=== PATIENT | female | born 2000 | race Caucasian/White ===

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

== ENCOUNTER 2019-10-30 23:18 | Emergency (ER) | payer BC, MEDICAID ==
[2019-10-30 23:25] VITALS: BP 148/73
--- NOTE | 2019-10-31 00:32 | ER Document Report ---
ED Medical Screen (RME) - General Chief Complaint: Chest Pressure Stated Complaint: FLANK PAIN Time Seen by Provider: 10/31/19 00:25 Mode of Arrival: Ambulatory Information source: Patient Notes: HPI; 19-year old female states she is 23 weeks presents to the emergency room complaining of some left rib pain that radiates to her left flank area that started earlier this morning. Takes Tylenol with relief. Denies any nausea, vomiting, no fevers. No urinary symptoms. No vaginal discharge or vaginal bleeding. OB care is up-to-date. PE: Alert and oriented x3. Mild distress noted. Lungs: Clear to auscultation without rales, rhonchi, wheezes. Heart: Regular rate rhythm without murmurs, rubs, gallops. Positive for left CVA tenderness. Unable to do full exam in triage secondary to body habitus and position of patient. I have greeted and performed a rapid initial assessment of this patient. A comprehensive ED assessment and evaluation of the patient, analysis of test results and completion of the medical decision making process will be conducted by additional ED providers. I have specifically instructed the patient or family members with the patient to immediately return to any nursing staff should anything change in the patient's condition or with their chief complaint. TRAVEL OUTSIDE OF THE [place] IN LAST 30 DAYS: No - Related Data Allergies/Adverse Reactions: No Known Allergies Allergy (Verified 09/20/18 15:07) Past Medical History - Social History Chew tobacco use (# tins/day): No Drug Abuse: None Pulmonary Medical History: Reports: Hx Asthma Renal/ Medical History: Denies: Hx Peritoneal Dialysis - Immunizations Immunizations up to date: Yes Physical Exam - Vital signs Vitals: Temp Pulse Resp BP Pulse Ox 97.4 F 99 16 148/73 H 100 10/30/19 23:24 10/30/19 23:24 10/30/19 23:24 10/30/19 23:24 10/30/19 23:24 Course - Vital Signs Vital signs: Temp Pulse Resp BP Pulse Ox 99.0 F 99 16 148/73 H 100 10/31/19 00:24 10/30/19 23:24 10/30/19 23:24 10/30/19 23:24 10/30/19 23:24
--- NOTE | 2019-10-31 01:33 | RADIOLOGY REPORT (SQ) ---
EXAM DESCRIPTION: Retroperitoneal and renal ultrasound CLINICAL HISTORY: 19 years Female; left flank pain TECHNIQUE: Bilateral renal ultrasound was performed. COMPARISON: None. FINDINGS: Visualized portions of IVC and aorta are unremarkable. Right kidney: The kidney measures 11.2 x 5.0 x 4.7 cm. Echogenicity is normal. Blood flow is normal.. No hydronephrosis or shadowing calculi. Left kidney: The kidney measures 11.3 x 5.2 x 5.0 cm. Echogenicity is normal. Blood flow is seen throughout the kidney.. No hydronephrosis or shadowing calculi. Bladder: The bladder is empty. . A gravid uterus is seen in the low pelvis. heart rate is noted at 160 bpm. Position is cephalic. IMPRESSION: 1. Normal-appearing kidneys bilaterally. No hydronephrosis. 2. Intrauterine in cephalic presentation.
[2019-10-31 01:54] LABS: ABSOLUTE BASOPHILS # (AUTO) 0.1 10^3/uL (0.0-0.2); ABSOLUTE EOSINOPHILS # (AUTO) 0.5 10^3/uL (0.0-0.6); ABSOLUTE LYMPHOCYTES (AUTO) 2.7 10^3/uL (0.5-4.7); ABSOLUTE MONOCYTES (AUTO) 1.2 10^3/uL (0.1-1.4); ABSOLUTE NEUT (AUTO) 9.2 10^3/uL (1.7-8.2); BASOPHILS % (AUTO) 0.4 % (0-2); EOSINOPHILS % (AUTO) 3.5 % (0-6); HEMATOCRIT 35.6 % (36.0-47.0); HEMOGLOBIN 12.3 g/dL (12.0-15.5); LYMPHOCYTES % (AUTO) 20.1 % (13-45); MEAN CORPUSCULAR HEMOGLOBIN 31.6 pg (27.0-33.4); MEAN CORPUSCULAR HGB CONC 34.5 g/dL (32.0-36.0); MEAN CORPUSCULAR VOLUME 92 fl (80-97); MONOCYTES % (AUTO) 8.8 % (3-13); PLATELET COUNT 293 10^3/uL (150-450); RED BLOOD COUNT 3.89 10^6/uL (3.72-5.28); RED CELL DISTRIBUTION WIDTH 13.6 % (11.5-14.0); SEGMENTED NEUTROPHILS % (AUTO) 67.2 % (42-78); TOTAL CELLS COUNTED % (AUTO) 100 %; WHITE BLOOD COUNT 13.6 10^3/uL (4.0-10.5)
[2019-10-31 02:01] LABS: APPEARANCE,URINE SLIGHTLY-CLOUDY; BILIRUBIN,URINE NEGATIVE (NEGATIVE); COLOR,URINE YELLOW; GLUCOSE, URINE NEGATIVE (NEGATIVE); KETONES,URINE NEGATIVE (NEGATIVE); LEUKOCYTE ESTERASE,URINE TRACE (NEGATIVE); NITRITE,URINE NEGATIVE (NEGATIVE); PROTEIN,URINE NEGATIVE (NEGATIVE); URINE SPECIFIC GRAVITY 1.017; UROBILINOGEN,URINE NEGATIVE mg/dL (<2.0)
[2019-10-31 02:05] LABS: ALBUMIN 3.9 g/dL (3.5-5.0); ALKALINE PHOSPHATASE 93 U/L (38-126); ANION GAP 9 (5-19); ASPARTATE AMINO TRANSFERASE 14 U/L (14-36); BILIRUBIN,TOTAL 0.3 mg/dL (0.2-1.3); BLOOD UREA NITROGEN 5 mg/dL (7-20); CALCIUM 9.8 mg/dL (8.4-10.2); CARBON DIOXIDE 20 mmol/L (22-30); CHLORIDE 106 mmol/L (98-107); GLUCOSE 93 mg/dL (75-110); POTASSIUM 3.9 mmol/L (3.6-5.0); TOTAL PROTEIN 7.1 g/dL (6.3-8.2)
== END 2019-10-31 07:00 | disposition left against medical advice (07) ==
LOC: ER 23:18
DX: O26.892 Other specified pregnancy related conditions, second trimester (principal); R07.81 Pleurodynia; R10.9 Unspecified abdominal pain; O99.512 Diseases of the respiratory system complicating pregnancy, second trimester; J45.909 Unspecified asthma, uncomplicated; Z3A.23 23 weeks gestation of pregnancy; Z53.20 Procedure and treatment not carried out because of patient's decision for unspecified reasons
CPT/HCPCS: 36415; 76770; 80053; 81001; 85025; 99281

== ENCOUNTER 2019-12-07 10:42 | Outpatient (CLI) | payer BC, MEDICAID ==
[2019-12-07 11:25] LABS: APPEARANCE,URINE SLIGHTLY-CLOUDY; BILIRUBIN,URINE NEGATIVE (NEGATIVE); COLOR,URINE YELLOW; GLUCOSE, URINE NEGATIVE (NEGATIVE); KETONES,URINE TRACE mg/dL (NEGATIVE); LEUKOCYTE ESTERASE,URINE TRACE (NEGATIVE); NITRITE,URINE NEGATIVE (NEGATIVE); PROTEIN,URINE NEGATIVE (NEGATIVE); URINE SPECIFIC GRAVITY 1.009; UROBILINOGEN,URINE NEGATIVE mg/dL (<2.0)
[2019-12-07 11:53] LABS: URINE AMPHETAMINES SCREEN NEGATIVE; URINE BARBITURATES SCREEN NEGATIVE; URINE BENZODIAZEPINES SCREEN NEGATIVE; URINE COCAINE SCREEN NEGATIVE; URINE MARIJUANA (THC) SCREEN NEGATIVE; URINE METHADONE SCREEN NEGATIVE; URINE PHENCYCLIDINE SCREEN NEGATIVE
== END 2019-12-07 12:10 | disposition home or self-care (01) ==
LOC: LC 10:42
PROVIDERS: ATTEND Obstetrics & Gynecology
DX: O23.43 Unspecified infection of urinary tract in pregnancy, third trimester (principal); Z3A.28 28 weeks gestation of pregnancy
CPT/HCPCS: 80307; 81001

== ENCOUNTER 2019-12-18 11:21 | Outpatient (CLI) | payer BC, MEDICAID ==
[2019-12-18] MEDS ORDERED: ACETAMINOPHEN 325 MG TABLET PO ONE (11:43)
[2019-12-18 11:56] LABS: ABSOLUTE EOSINOPHILS # (AUTO) 0.3 10^3/uL (0.0-0.6); ABSOLUTE LYMPHOCYTES (AUTO) 1.8 10^3/uL (0.5-4.7); ABSOLUTE MONOCYTES (AUTO) 0.8 10^3/uL (0.1-1.4); BASOPHILS % (AUTO) 0.2 % (0-2); EOSINOPHILS % (AUTO) 3.3 % (0-6); HEMATOCRIT 36.2 % (36.0-47.0); HEMOGLOBIN 12.5 g/dL (12.0-15.5); MEAN CORPUSCULAR HEMOGLOBIN 31.5 pg (27.0-33.4); MEAN CORPUSCULAR HGB CONC 34.6 g/dL (32.0-36.0); MEAN CORPUSCULAR VOLUME 91 fl (80-97); MONOCYTES % (AUTO) 7.7 % (3-13); PLATELET COUNT 309 10^3/uL (150-450); RED BLOOD COUNT 3.98 10^6/uL (3.72-5.28); SEGMENTED NEUTROPHILS % (AUTO) 70.8 % (42-78); TOTAL CELLS COUNTED % (AUTO) 100 %; WHITE BLOOD COUNT 9.9 10^3/uL (4.0-10.5)
[2019-12-18] MEDS ORDERED: ACETAMINOPHEN 325 MG TABLET ONE (11:57)
[2019-12-18 12:04] LABS: AMORPHOUS SEDIMENT,URINE TRACE /HPF; APPEARANCE,URINE CLOUDY; BILIRUBIN,URINE SMALL (NEGATIVE); COLOR,URINE AMBER; GLUCOSE, URINE NEGATIVE (NEGATIVE); KETONES,URINE TRACE mg/dL (NEGATIVE); LEUKOCYTE ESTERASE,URINE SMALL (NEGATIVE); NITRITE,URINE NEGATIVE (NEGATIVE); PROTEIN,URINE 100 mg/dL (NEGATIVE)
[2019-12-18 12:19] LABS: ALBUMIN 3.9 g/dL (3.5-5.0); ALKALINE PHOSPHATASE 110 U/L (38-126); ANION GAP 11 (5-19); ASPARTATE AMINO TRANSFERASE 17 U/L (14-36); BILIRUBIN,TOTAL 0.3 mg/dL (0.2-1.3); BLOOD UREA NITROGEN 5 mg/dL (7-20); CALCIUM 9.4 mg/dL (8.4-10.2); CARBON DIOXIDE 20 mmol/L (22-30); CHLORIDE 105 mmol/L (98-107); GLUCOSE 116 mg/dL (75-110); URIC ACID 3.4 mg/dL (2.5-6.2)
[2019-12-18 12:23] LABS: URINE AMPHETAMINES SCREEN NEGATIVE; URINE BARBITURATES SCREEN NEGATIVE; URINE BENZODIAZEPINES SCREEN NEGATIVE; URINE COCAINE SCREEN NEGATIVE; URINE METHADONE SCREEN NEGATIVE; URINE PHENCYCLIDINE SCREEN NEGATIVE
[2019-12-18 12:33] LABS: URINE MARIJUANA (THC) SCREEN NEGATIVE
[2019-12-18 12:36] LABS: URINE PROTEIN 5.6 mg/dL (<12)
[2019-12-18 12:43] LABS: URINE CREATININE 363.5 mg/dL (16-327)
== END 2019-12-18 13:01 | disposition home or self-care (01) ==
LOC: LC 11:21
PROVIDERS: ATTEND Obstetrics & Gynecology
DX: O16.3 Unspecified maternal hypertension, third trimester (principal); Z3A.29 29 weeks gestation of pregnancy
CPT/HCPCS: 36415; 80053; 80307; 81001; 82570; 83615; 84156; 84550; 85025; 87086

== ENCOUNTER 2020-01-07 13:07 | Outpatient (CLI) | payer BC, MEDICAID ==
[2020-01-07] MEDS ORDERED: HYDROXYZINE PAMOATE 50 MG CAPSULE ONE (13:33)
[2020-01-07] MEDS ORDERED: HYDROXYZINE PAMOATE 50 MG CAPSULE PO ONE (13:42)
[2020-01-07 14:06] LABS: URINE AMPHETAMINES SCREEN NEGATIVE; URINE BARBITURATES SCREEN NEGATIVE; URINE BENZODIAZEPINES SCREEN NEGATIVE; URINE COCAINE SCREEN NEGATIVE; URINE MARIJUANA (THC) SCREEN NEGATIVE; URINE METHADONE SCREEN NEGATIVE; URINE PHENCYCLIDINE SCREEN NEGATIVE
[2020-01-07 14:15] LABS: APPEARANCE,URINE CLEAR; BILIRUBIN,URINE NEGATIVE (NEGATIVE); COLOR,URINE YELLOW; GLUCOSE, URINE NEGATIVE (NEGATIVE); KETONES,URINE NEGATIVE (NEGATIVE); LEUKOCYTE ESTERASE,URINE SMALL (NEGATIVE); NITRITE,URINE NEGATIVE (NEGATIVE); PROTEIN,URINE NEGATIVE (NEGATIVE); URINE SPECIFIC GRAVITY 1.012; UROBILINOGEN,URINE NEGATIVE mg/dL (<2.0)
[2020-01-07 14:33] LABS: ABSOLUTE EOSINOPHILS # (AUTO) 0.4 10^3/uL (0.0-0.6); ABSOLUTE LYMPHOCYTES (AUTO) 1.8 10^3/uL (0.5-4.7); ABSOLUTE NEUT (AUTO) 6.9 10^3/uL (1.7-8.2); BASOPHILS % (AUTO) 0.4 % (0-2); EOSINOPHILS % (AUTO) 3.9 % (0-6); HEMATOCRIT 33.4 % (36.0-47.0); HEMOGLOBIN 12.1 g/dL (12.0-15.5); LYMPHOCYTES % (AUTO) 17.9 % (13-45); MEAN CORPUSCULAR HEMOGLOBIN 32.9 pg (27.0-33.4); MEAN CORPUSCULAR HGB CONC 36.4 g/dL (32.0-36.0); MEAN CORPUSCULAR VOLUME 91 fl (80-97); MONOCYTES % (AUTO) 9.8 % (3-13); PLATELET COUNT 274 10^3/uL (150-450); RED BLOOD COUNT 3.69 10^6/uL (3.72-5.28); RED CELL DISTRIBUTION WIDTH 12.8 % (11.5-14.0); TOTAL CELLS COUNTED % (AUTO) 100 %; WHITE BLOOD COUNT 10.2 10^3/uL (4.0-10.5)
[2020-01-07 15:00] LABS: ALBUMIN 3.4 g/dL (3.5-5.0); ALKALINE PHOSPHATASE 117 U/L (38-126); ANION GAP 11 (5-19); ASPARTATE AMINO TRANSFERASE 19 U/L (14-36); BILIRUBIN,DIRECT 0.2 mg/dL (0.0-0.4); BILIRUBIN,TOTAL 0.4 mg/dL (0.2-1.3); BLOOD UREA NITROGEN 6 mg/dL (7-20); CALCIUM 9.3 mg/dL (8.4-10.2); CARBON DIOXIDE 16 mmol/L (22-30); CHLORIDE 106 mmol/L (98-107); GLUCOSE 94 mg/dL (75-110); POTASSIUM 4.4 mmol/L (3.6-5.0); TOTAL PROTEIN 6.3 g/dL (6.3-8.2)
== END 2020-01-07 15:15 | disposition home or self-care (01) ==
LOC: LC 13:07
PROVIDERS: ATTEND Obstetrics & Gynecology
DX: O26.893 Other specified pregnancy related conditions, third trimester (principal); Z3A.32 32 weeks gestation of pregnancy
CPT/HCPCS: 36415; 80053; 80307; 81001; 82239; 85025; 87086

== ENCOUNTER 2020-02-05 15:49 | Inpatient (IN) | payer BC, MEDICAID ==
[2020-02-05 16:57] LABS: APPEARANCE,URINE CLEAR; BILIRUBIN,URINE NEGATIVE (NEGATIVE); COLOR,URINE STRAW; GLUCOSE, URINE NEGATIVE (NEGATIVE); KETONES,URINE NEGATIVE (NEGATIVE); LEUKOCYTE ESTERASE,URINE NEGATIVE (NEGATIVE); NITRITE,URINE NEGATIVE (NEGATIVE); PROTEIN,URINE NEGATIVE (NEGATIVE); URINE SPECIFIC GRAVITY 1.003; UROBILINOGEN,URINE NEGATIVE mg/dL (<2.0)
[2020-02-05 17:14] LABS: URINE AMPHETAMINES SCREEN NEGATIVE; URINE BARBITURATES SCREEN NEGATIVE; URINE BENZODIAZEPINES SCREEN NEGATIVE; URINE COCAINE SCREEN NEGATIVE; URINE MARIJUANA (THC) SCREEN NEGATIVE; URINE METHADONE SCREEN NEGATIVE; URINE PHENCYCLIDINE SCREEN NEGATIVE
[2020-02-05 17:28] LABS: HEMATOCRIT 35.6 % (36.0-47.0); HEMOGLOBIN 12.7 g/dL (12.0-15.5); MEAN CORPUSCULAR HEMOGLOBIN 32.3 pg (27.0-33.4); MEAN CORPUSCULAR HGB CONC 35.8 g/dL (32.0-36.0); MEAN CORPUSCULAR VOLUME 90 fl (80-97); PLATELET COUNT 262 10^3/uL (150-450); RED BLOOD COUNT 3.94 10^6/uL (3.72-5.28); RED CELL DISTRIBUTION WIDTH 13.1 % (11.5-14.0); WHITE BLOOD COUNT 9.5 10^3/uL (4.0-10.5)
[2020-02-05 17:33] LABS: UR PRO/CREAT RATIO RESULT 0.6 mg/mg (0.0-0.2); URINE PROTEIN 12.8 mg/dL (<12)
[2020-02-05 17:57] LABS: ALBUMIN 3.5 g/dL (3.5-5.0); ALKALINE PHOSPHATASE 162 U/L (38-126); ANION GAP 12 (5-19); ASPARTATE AMINO TRANSFERASE 15 U/L (14-36); BILIRUBIN,DIRECT 0.2 mg/dL (0.0-0.4); BILIRUBIN,TOTAL 0.4 mg/dL (0.2-1.3); BLOOD UREA NITROGEN 6 mg/dL (7-20); CALCIUM 9.5 mg/dL (8.4-10.2); CARBON DIOXIDE 18 mmol/L (22-30); CHLORIDE 104 mmol/L (98-107); GLUCOSE 88 mg/dL (75-110); POTASSIUM 4.2 mmol/L (3.6-5.0); TOTAL PROTEIN 6.1 g/dL (6.3-8.2); URIC ACID 3.7 mg/dL (2.5-6.2)
[2020-02-05] MEDS ORDERED: HYDRALAZINE HCL INJ/PF 20 MG/1 ML SDV ONE (18:23)
--- NOTE | 2020-02-05 18:23 | Admission Physical ---
Datetime Report Generated by CPN: 02/05/2020 18:23 CURRENT ADMISSION Chief Complaint: Signs/Symptoms Gestational HTN Indication for Induction: Gestational HTN Admit Impression : Term, Intrauterine ; Induction of Labor Admit Plan: Admit to Unit; Initiate Labor Induction Protocol ALLERGIES Medication Allergies: Yes Medication Allergies: dimenhydrinate (02/05/2020) Food Allergies: shellfish OBSTETRICAL HISTORY EDC: 02/26/2020 00:00 : 1 (Annotations: Data stored by [facility] on behalf of user) Para: 0 Term: 0 : 0 SAB: 0 IAB: 0 Ectopic: 0 Livin Cesareans: 0 VBACs: 0 Multiple Births: 0 Gestational Diabetes: No Rh Sensitization: No Incompetent Cervix: No PARISH: No Infertility: No Uterine Anomaly: No IUGR: No Hx Previous C/S: No Macrosomia: No Hx Loss/Stillborn: No PIH: No Hx : No Placenta Previa/Abruption: No Depression/PP Depression: No PTL/PROM: No Post Hemorrhage: No Current Procedures: Ultrasound Obstetrical History Comments: G1- current SEE RECORDS Cigarettes: Never Smoker. [id number] MEDICAL HISTORY Diabetes: No Pulmonary Disease (Asthma, TB): Yes Hypertension: No Heart Disease: No Medical History Comments: has albuterol inhaler- last used in february, PHYSICAL EXAM General: Normal HEENT: Normal Neurologic: Normal Thyroid: Normal Heart: Normal Lungs: Normal Breast: Normal Back: Normal Abdomen: Normal Genitourinary Exam: Normal Extremities: Normal DTRs: Normal Pelvic Type: Adequate Vital Signs: Reviewed; Within Normal Limits MEMBRANES Pooling: Negative Membranes: Intact FETUS A EGA: 37.0 Monitoring: External US Decelerations: None Estimated Weight (gm): 3400 Presentation: Vertex Admit Comment: pt with persitent elevated blood pressures and a pcr of 0.6. Admit for induction with severe hypertension. INFORMED CONSENT Signature: with User ID: [email or web address]
[2020-02-05] MEDS ORDERED: DINOPROSTONE 10 MG VAGINAL INSERT.SR PV PRN (18:24)
[2020-02-05] MEDS ORDERED: HYDRALAZINE HCL INJ/PF 20 MG/1 ML SDV IV ONE (18:27)
[2020-02-05] MEDS ORDERED: RINGERS SOLUTION,LACTATED 1,000 ML IV PRN (18:44)
[2020-02-05] MEDS ORDERED: RINGERS SOLUTION,LACTATED 1,000 ML IV ONE (18:44)
[2020-02-05] MEDS ORDERED: OXYTOCIN 10 UNIT/ML VIAL ONE (20:24)
[2020-02-05] MEDS ORDERED: MISOPROSTOL 0.2 MG TABLET ONE (20:24)
[2020-02-05] MEDS ORDERED: OXYTOCIN/0.9 % SODIUM CHLORIDE 30 UNIT/500 ML RTUINJ ONE (20:24)
[2020-02-05] MEDS ORDERED: LIDOCAINE 1% INJ-PF (10 MG/ML) 30 ML SDV ONE (20:24)
[2020-02-05] MEDS ORDERED: DINOPROSTONE 10 MG VAGINAL INSERT.SR ONE (21:05)
[2020-02-05] MEDS ORDERED: ZOLPIDEM TARTRATE 5 MG TABLET ONE (22:16)
[2020-02-05] MEDS ORDERED: ZOLPIDEM TARTRATE 5 MG TABLET PO ONE (22:30)
[2020-02-06] MEDS ORDERED: ONDANSETRON HCL INJ/PF 4 MG/2 ML SDV ONE (08:14)
[2020-02-06] MEDS ORDERED: ONDANSETRON HCL INJ/PF 4 MG/2 ML SDV IV PRN (08:30)
[2020-02-06] MEDS ORDERED: OXYTOCIN/0.9 % SODIUM CHLORIDE 30 UNIT/500 ML RTUINJ IV PRN (09:13)
[2020-02-06] MEDS ORDERED: MISOPROSTOL 0.1 MG TABLET ONE ×3 (10:21→19:23)
[2020-02-06] MEDS: MISOPROSTOL 0.1 MG TABLET PO SCH ×3 (10:59→19:45)
[2020-02-06] MEDS ORDERED: PROMETHAZINE HCL INJ 25 MG/1 ML VIAL IV ONE (19:58)
[2020-02-06] MEDS ORDERED: NALBUPHINE HCL INJ 10 MG/1 ML AMPULE INJ ONE (19:58)
[2020-02-06] MEDS ORDERED: NALBUPHINE HCL INJ 10 MG/1 ML AMPULE ONE (20:04)
[2020-02-06] MEDS ORDERED: PROMETHAZINE HCL INJ 25 MG/1 ML VIAL ONE (20:04)
[2020-02-07] MEDS: MISOPROSTOL 0.1 MG TABLET PO SCH ×2 (01:50→02:40)
[2020-02-07] MEDS ORDERED: MORPHINE SULFATE 10 MG/ML INJ IV ONE (02:03)
[2020-02-07] MEDS ORDERED: MORPHINE SULFATE 10 MG/ML INJ ONE (02:06)
[2020-02-07] MEDS ORDERED: CEFAZOLIN 2 GM/D5W RTU 2 GM/50 ML RTUPB IV ONE ×2 (02:58→03:15)
[2020-02-07] MEDS ORDERED: FENTANYL/BUPIVACAINE/NS/PF 300 MCG/150 ML RTUINJ EPI ONE (04:51)
[2020-02-07] MEDS ORDERED: EPHEDRINE SULFATE INJ 50 MG/1 ML AMPULE ONE (04:51)
[2020-02-07] MEDS ORDERED: ROPIVACAINE HCL 0.2% INJ/PF (2 MG/ML) 20 ML SDV ONE (04:52)
[2020-02-07] MEDS ORDERED: ZOLPIDEM TARTRATE 5 MG TABLET PO PRN (09:55)
[2020-02-07] MEDS ORDERED: PROMETHAZINE HCL INJ 25 MG/1 ML VIAL IV PRN (09:55)
[2020-02-07] MEDS ORDERED: NA PHOS,M-B/NA PHOS,DI-BA (ADULT) 133 ML ENEMA PR PRN (09:55)
[2020-02-07] MEDS ORDERED: ACETAMINOPHEN WITH CODEINE #3 TABLET PO PRN (09:55)
[2020-02-07] MEDS ORDERED: PSEUDOEPHEDRINE HCL 30 MG TABLET PO PRN (09:55)
[2020-02-07] MEDS ORDERED: DIBUCAINE 1% OINTMENT 28 GM TP PRN (09:55)
[2020-02-07] MEDS ORDERED: PROMETHAZINE HCL 25 MG TABLET PO PRN (09:55)
[2020-02-07] MEDS ORDERED: DIPHENHYDRAMINE HCL 25 MG CAPSULE PO PRN (09:55)
[2020-02-07] MEDS ORDERED: MEASLES,MUMPS&RUBELLA VACC/PF 0.5 ML VIAL SUBCUT PRN ×2 (09:55→14:30)
[2020-02-07] MEDS ORDERED: MAGNESIUM HYDROXIDE SUSP 30 ML UDCUP PO PRN (09:55)
[2020-02-07] MEDS ORDERED: OXYTOCIN/0.9 % SODIUM CHLORIDE 30 UNIT/500 ML RTUINJ IV PRN (09:55)
[2020-02-07] MEDS ORDERED: DIPH/PERTUSS(ACELL)/TETANUS VAC/PF 0.5 ML SYR (>=10YO) IM PRN ×2 (09:55→14:30)
[2020-02-07] MEDS ORDERED: GLYCERIN/WITCH HAZEL LEAF 1 EACH MED..WIPE TP PRN (09:55)
[2020-02-07] MEDS ORDERED: PROMETHAZINE HCL 25 MG SUPP.RECT PR PRN (09:55)
[2020-02-07] MEDS ORDERED: ACETAMINOPHEN 325 MG TABLET PO PRN (09:55)
[2020-02-07] MEDS ORDERED: FAMOTIDINE 20 MG TABLET ONE (10:50)
[2020-02-07] MEDS ORDERED: DOCUSATE SODIUM 100 MG CAPSULE ONE (10:50)
[2020-02-07] MEDS ORDERED: PRENATAL VITAMIN W DHA CAPSULE PO ONE (10:50)
[2020-02-07] MEDS ORDERED: SENNOSIDES/DOCUSATE 8.6-50 MG 1 EACH TABLET ONE (10:50)
[2020-02-07] MEDS ORDERED: FERROUS SULFATE 325 MG TABLET PO ONE (10:51)
--- NOTE | 2020-02-07 10:51 | Delivery Summary ---
Del Sum A-C Datetime Report Generated by CPN: 02/07/2020 10:51 DELIVERY PERSONNEL DELIVERY PERSONNEL: [id number] Delivery Doctor:: Courtney Kulkarni CNM Labor and Delivery Nurse:: Nolvia Weller RNmotor vehicle operator road supervisor Nurse:: RYAN Alexis Nursery Nurse:: Vera Drummond RN [employer] Laborer/BRANDS EDITOR: Estelle Mccabe CST [employer] Laborer/BRANDS EDITOR: [facility], [employer] MATERNAL INFORMATION Delivery Anesthesia: Epidural Medications After Delivery: Pitocin 30 Units in 500ml NS/D5W Delivery QBL: 154 Maternal Complications: Other Complication Details: pre eclampsia Provider Comments: SVDVF over intact perineum. OA to NOLAN, vigorous to mothers abd. Cord clamped x2 cut per FOB. Placenta spont via omalley. Bleeding minimal. Vaginal laceration bleeding, chromic suture for repair under epidural anesthesia. Mother and stable. LABOR SUMMARY EDC: 02/26/2020 00:00 No. Babies in Womb: 1 Attempted: No Labor Anesthesia: Epidural LABOR INFORMATION Reason for Induction: Pre-Eclampsia Onset of Labor: 02/07/2020 06:00 Complete Dilatation: 02/07/2020 08:21 Cervical Ripening Agents: Cervidil; Cytotec @ Oxytocin: Induction Group B Beta Strep: Negative Antibiotics # of Doses: 1 Antibiotics Time of Last Dose: 02/07/2020 03:00 Name of Antibiotic Given: ancef Steroids Given: None Reason Steroids Not Administered: Not Applicable MEMBRANES Membranes Rupture Method: Spontaneous Rupture of Membranes: 02/06/2020 08:59 Length of Rupture (hr): 24.42 Amniotic Fluid Color: Clear Amniotic Fluid Amount: Moderate Amniotic Fluid Odor: Normal STAGES OF LABOR Stage 1 hr: 2 Stage 1 min: 21 Stage 2 hr: 1 Stage 2 min: 3 Stage 3 hr: 0 Stage 3 min: 5 Total Time in Labor hr: 3 Total Time in Labor min: 29 VAGINAL DELIVERY Laceration #1: Vaginal Laceration Extension #1: First Degree Laceration #2: Periurethral Other Laceration: bilateral labial and vaginal lacerations with repair Laceration Repair: Yes Sponge Count Correct: Yes Sharps Count Correct: Yes BABY A INFORMATION Infant Delivery Date/Time: 02/07/2020 09:24 Method of Delivery: Vaginal Nurse Controlled Delivery: No Born in Route : No : N/A Forceps: N/A Vacuum Extraction: N/A Shoulder Dystocia : No PRESENTATION/POSITION BABY A Presentation: Cephalic Cephalic Presentation: Vertex Vertex Position: Left Occipital Anterior Breech Presentation: N/A PLACENTA INFORMATION BABY A Placenta Delivery Time : 02/07/2020 09:29 Placenta Method of Delivery: Spontaneous Placenta Status: Delivered SCORES BABY A Heart Rate 1 min: >100 bpm Resp Effort 1 min: Good Cry Reflex Irritability 1 min: Cough or Sneeze or Pulls Away Muscle Tone 1 min: Active Motion Color 1 min: Body [place], Extremities Blue Resuscitation Effort 1 min: Tactile Stimulation SCORE 1 MIN: 9 Heart Rate 5 min: >100 bpm Resp Effort 5 min: Good Cry Reflex Irritability 5 min: Cough or Sneeze or Pulls Away Muscle Tone 5 min: Active Motion Color 5 min: Body [place], Extremities Blue SCORE 5 MIN: 9 INFORMATION BABY A Gestational Age at Delivery: 37.2 Gestational Status: Early Term- 37- 38.6 Weeks Outcome : Liveborn Condition : Stable Sex: Female IDENTIFICATION BABY A Infant Verification Date/Time: 02/07/2020 09:43 ID Band Number: [id number] Mother's Name Verified: Yes RN Verifying Infant: Lyndsay, RN Additional Verifying Personnel: SAnkit Parmar, RN WEIGHT/LENGTH BABY A Birthweight (gm): 2393 Weight (lb): 5 Infant Weight (oz): 4 Length (in): 18.50 Length (cm): 46.99 CORD INFORMATION BABY A No. Cord Vessels: 3 Nuchal Cord : N/A Cord Blood Taken: Yes-For Storage (Mom's Blood type +) Suction: None ASSESSMENT BABY A Skin to Skin: Yes Skin to Skin Time (min): 61 BABY B INFORMATION : N/A SIGNATURES Assignment: Tila Pinto MD Signature: with User ID: [email or web address] : with User ID: [email or web address] : I was personally available for consultation and serving as supervising physician for the P.
--- NOTE | 2020-02-07 10:51 | Birth Certificate Data ---
Cert Data Datetime Report Generated by CPJoseph: 02/07/2020 10:51 CERTIFICATE DATA 47a. Care: Yes (12/07/2019 10:55:Nafisa Parmar RN) 47b. Date of First Visit: 08/15/2019 00:00 (12/07/2019 10:55:Lona Crawford RN) 47c. Date of Last Visit: 02/05/2020 00:00 (12/07/2019 10:55:Nafisa Parmar RN) 47d. Number of Visits: 10 (12/07/2019 10:55:Lan Durham RN) 48a. Number of Prev Live Births: 0 (12/07/2019 10:55:Lona Crawford RN) 48b. Now Livin (12/07/2019 10:55:Lona Crawford RN) 48c. Live Births Now : 0 (12/07/2019 10:55:QS system process) 48e. Losses: 0 (12/07/2019 10:55:Lona Crawford RN) RISK FACTORS IN THIS 49a. Diabetes: No (12/07/2019 10:55:Lona Crawford RN) 49b. Hypertension: Yes (12/07/2019 10:55:Nafisa Parmar RN) Type of Hypertension: Gestational (PIH, Pre-eclampsia) (12/07/2019 10:55:Nafisa Parmar RN) 49c. Previous Births: 0 (12/07/2019 10:55:Lona Crawford RN) 49d. Stillborns: No (12/07/2019 10:55:Lona Crawford RN) 49d. IUGR: No (12/07/2019 10:55:Lona Crawford RN) 49e. Infertility Treatment: No (12/07/2019 10:55:Nafisa Parmar RN) 49f. Previous Cesareans: 0 (12/07/2019 10:55:Lona Crawford RN) Mother's Height 50b. Height Inches: 62 (02/05/2020 20:53:QS system process) Mother's Weight 51a. Pre- Weight (lbs): 221 (12/07/2019 10:55:Lona Crawford RN) 51b. Weight at Delivery (lbs): 231 (02/05/2020 20:53:QS system process) 52. Dt Last Normal Menses Began: 05/09/2019 00:00 (12/07/2019 10:55:Nafisa Parmar RN) Infections Present/Treated 53a. Gonorrhea: No (12/07/2019 10:55:Nafisa Parmar RN) Results this Hospital Visit : Negative (12/07/2019 10:55:Lan Durham RN) 53b. Syphilis: No (12/07/2019 10:55:Nafisa Parmar RN) Results this Hospital Visit: NONREACTIVE (02/05/2020 19:15:QS system process) 53c. Chlamydia: No (12/07/2019 10:55:Nafisa Parmar RN) Results this Hospital Visit: Negative (12/07/2019 10:55:Lan Durham RN) 53d. Hepatitis B: No (12/07/2019 10:55:Nafisa Parmar RN) Results this Hospital Visit: Negative (12/07/2019 10:55:Lona Crawford RN) 53e. Hepatitis C: Negative (12/07/2019 10:55:Lona Crawford RN) 53h. Mother Tested for HBsAG: Yes (12/07/2019 10:55:Lona Crawford RN) 53i. Date Tested: 08/15/2019 00:00 (12/07/2019 10:55:Lona Crawford RN) 53j. Test Result: Negative (12/07/2019 10:55:Lona Crawford RN) Obstetric Procedures 54a, b, c. Obstetric Procedures: Ultrasound; NST (12/07/2019 10:55:Nafisa Parmar RN) Cigarette Smoking Cigarette Smoking: Never Smoker. [id number] (12/07/2019 10:55:Lona Crawford RN) 55a. 3 Months Before Preg - Ci (12/07/2019 10:55:Lan Durham RN) 55a. Packs: 0 (12/07/2019 10:55:Lan Durham RN) 55b. 1st Trimester of Preg- Ci (12/07/2019 10:55:Lan Durham RN) 55b. Packs: 0 (12/07/2019 10:55:Lan Durham RN) 55c. 2nd Trimester of Preg- Ci (12/07/2019 10:55:Lna Durham RN) 55c. Packs: 0 (12/07/2019 10:55:Lan Durham RN) 55d. 3rd Trimester of Preg- Ci (12/07/2019 10:55:Lan Durham RN) 55d. Packs: 0 (12/07/2019 10:55:Lan Durham RN) Onset of Labor 56a. PROM >12 Hrs: 24.42 (12/07/2019 10:55:QS system process) 56b. Precipitous Labor <3 Hrs: 3 (12/07/2019 10:55:QS system process) 56c. Prolonged Labor > 20 Hrs: 3 (12/07/2019 10:55:QS system process) 57a. Induction of Labor: Induction (12/07/2019 10:55:Nolvia CHAO Weller) 57a. Induction of Labor: Cervidil; Cytotec @ (02/06/2020 19:45:Nolvia Weller RN) 57c. Non-Vertex Presentation A: Vertex (12/07/2019 10:55:Nolvia Weller RN) 57d. Steroids - Lung Mat: None (12/07/2019 10:55:Nolvia Weller RN) 57d. Steroids - Lung Mat: Not Applicable (12/07/2019 10:55:Nolvia Weller RN) 57e. Antibiotics During Labor: 02/07/2020 03:00 (12/07/2019 10:55:Nolvia Weller RN) 57f. Mat [place] or Temp >100.4: 98.7 (12/07/2019 10:55:Nolvia Weller RN) 57g. Moderate/Heavy Meconium: Clear (12/07/2019 10:55:Nolvia Weller RN) 57i. Epidural/Spinal Anesthesia: Epidural (12/07/2019 10:55:Nolvia Weller RN) Method of Delivery 58a. Forceps - Unsuccessful A: N/A (12/07/2019 10:55:Nolvia Weller RN) 58b. Vacuum - Unsuccessful A: N/A (12/07/2019 10:55:Nolvia Weller RN) 58c. Presentation at 58c. Presentation at - A : Vertex (12/07/2019 10:55:Nolvia CHAO Weller) 58c. Presentation at - A : N/A [facility] 58c. Presentation at - A : Cephalic (02/06/2020 10:56:Mariann Peter RN) Final Route and Method of Del 58d. Baby A Route/Delivery: Vaginal (02/07/2020 09:24:Nolvia CHAO Weller) 58e. Trial of Labor Attempted: No (12/07/2019 [facility] 58e. Trial of Labor Attempted A: N/A (12/07/2019 10:[facility] 58e. Trial of Labor Attempted B: N/A (12/07/2019 10:55:[facility] ) Maternal Morbidity 59b. 3rd or 4th Degree Lacs: Vaginal (12/07/2019 10:55:Nolvia Janee, RN) 59b. 3rd or 4th Degree Lacs: bilateral labial and vaginal lacerations with repair (12/07/2019 10:55:Nolvia Feankita, RN) Birthweight Baby A: 2393 (12/07/2019 10:55:Nolvia Janee, RN) 60a. Pounds : 5 (12/07/2019 10:55:QS system process) 60b. Ounces: 4 (12/07/2019 10:55:QS system process) 61. GA at Delivery Baby A: 37.2 (12/07/2019 10:55:Nolvia Feuston, RN) : Early Term- 37- 38.6 Weeks (12/07/2019 10:55:QS system process) 62a. 5 Minute Baby A: 9 (12/07/2019 10:55:QS system process)
[2020-02-07] MEDS: PRENATAL VITAMIN W DHA CAPSULE PO SCH (13:49)
[2020-02-07] MEDS: DOCUSATE SODIUM 100 MG CAPSULE PO SCH ×2 (13:49→18:22)
[2020-02-07] MEDS: FERROUS SULFATE 325 MG TABLET PO SCH ×2 (13:49→18:23)
[2020-02-07] MEDS: FAMOTIDINE 20 MG TABLET PO SCH ×2 (13:49→22:08)
[2020-02-07] MEDS: SENNOSIDES/DOCUSATE 8.6-50 MG 1 EACH TABLET PO SCH (13:49)
[2020-02-07] MEDS: IBUPROFEN 800 MG TABLET PO SCH ×2 (14:42→22:08)
[2020-02-07] MEDS: CEFAZOLIN 2 GM/D5W RTU 2 GM/50 ML RTUPB IV SCH ×2 (14:45→22:09)
[2020-02-07] MEDS: ACETAMINOPHEN WITH CODEINE #3 TABLET PO PRN (18:25)
[2020-02-08] MEDS: IBUPROFEN 800 MG TABLET PO SCH ×3 (05:25→21:28)
[2020-02-08] MEDS: CEFAZOLIN 2 GM/D5W RTU 2 GM/50 ML RTUPB IV SCH ×3 (05:25→23:44)
[2020-02-08 08:38] LABS: HEMATOCRIT 30.6 % (36.0-47.0); MEAN CORPUSCULAR HEMOGLOBIN 32.8 pg (27.0-33.4); MEAN CORPUSCULAR VOLUME 91 fl (80-97); PLATELET COUNT 222 10^3/uL (150-450); RED BLOOD COUNT 3.37 10^6/uL (3.72-5.28); RED CELL DISTRIBUTION WIDTH 13.5 % (11.5-14.0)
[2020-02-08] MEDS: ACETAMINOPHEN WITH CODEINE #3 TABLET PO PRN (09:19)
[2020-02-08] MEDS: FAMOTIDINE 20 MG TABLET PO SCH ×2 (09:20→21:28)
[2020-02-08] MEDS: SENNOSIDES/DOCUSATE 8.6-50 MG 1 EACH TABLET PO SCH (09:20)
[2020-02-08] MEDS: BENZOCAINE/MENTHOL AEROSOL SPRAY 56 ML TOP PRN ×2 (09:20→23:40)
[2020-02-08] MEDS: FERROUS SULFATE 325 MG TABLET PO SCH ×2 (09:20→18:28)
[2020-02-08] MEDS: DOCUSATE SODIUM 100 MG CAPSULE PO SCH ×2 (09:20→18:28)
[2020-02-08] MEDS: PRENATAL VITAMIN W DHA CAPSULE PO SCH (09:20)
--- NOTE | 2020-02-08 10:49 | PDOC PROGRESS REPORT ---
Subjective-OB Progress Note for:: 02/08/20 Subjective: Pt doing well, no concerns. She reports light bleeding, reg diet and voiding w/o difficulty. Physical Exam (OB) Vital Signs: Temp Pulse Resp BP Pulse Ox 97.2 F 80 16 123/73 98 02/08/20 08:06 02/08/20 08:06 02/08/20 08:06 02/08/20 08:06 02/08/20 08:06 Intake & Output 02/07/20 02/08/20 02/09/20 06:59 06:59 06:59 Intake Total 1400 300 Balance 1400 300 Weight 104.78 kg - PIH/Pre-Eclampsia DTR's: 2 + Clonus: Negative Headache: Absent Epigastric Pain: No Visual Changes: No - Maternal Morbidity 59. Maternal Morbidity (serious complications experinced by the mother associated with labor and delivery: None of the above - Lochia Lochia Amount: Scant < 10 ml Lochia Color: Rubra/Red - Abdomen Description: Soft, Round Hernia Present: No Fundal Description: Firm, Midline Fundal Height: u/u - u/2 Objective-Diagnostic Laboratory: 02/08/20 07:55 02/05/20 17:08 02/08/20 07:55 WBC 9.0 RBC 3.37 L Hgb 11.0 L Hct 30.6 L MCV 91 MCH 32.8 MCHC 36.0 RDW 13.5 Plt Count 222 Assessment and Plan(PN) - Assessment and Plan (1) (spontaneous vaginal delivery) Is this a current diagnosis for this admission?: Yes (2) Obstetrical laceration, first degree Is this a current diagnosis for this admission?: Yes (3) Pre-eclampsia Qualifiers: Trimester: third trimester Qualified Code(s): O14.93 - Unspecified pre- eclampsia, third trimester Is this a current diagnosis for this admission?: Yes - Time Spent with Patient Time with patient: Less than 15 minutes Medications reviewed and adjusted accordingly: Yes - Disposition Anticipated Discharge Disposition: Home, Self Care Anticipated Discharge Timeframe: within 24 hours
[2020-02-09] MEDS: IBUPROFEN 800 MG TABLET PO SCH ×2 (05:43→13:40)
[2020-02-09] MEDS: CEFAZOLIN 2 GM/D5W RTU 2 GM/50 ML RTUPB IV SCH ×2 (06:41→13:38)
[2020-02-09] MEDS: SENNOSIDES/DOCUSATE 8.6-50 MG 1 EACH TABLET PO SCH (09:41)
[2020-02-09] MEDS: DOCUSATE SODIUM 100 MG CAPSULE PO SCH (09:41)
[2020-02-09] MEDS: FERROUS SULFATE 325 MG TABLET PO SCH (09:41)
[2020-02-09] MEDS: PRENATAL VITAMIN W DHA CAPSULE PO SCH (09:41)
[2020-02-09] MEDS: FAMOTIDINE 20 MG TABLET PO SCH (09:41)
--- NOTE | 2020-02-09 10:27 | PDOC DISCHARGE SUMMARY ---
Impression - Admit/DC Date/PCP Admission Date/Primary Care Provider: 02/05/20 18:22 Discharge Date: 02/09/20 - Discharge Diagnosis (1) (spontaneous vaginal delivery) Is this a current diagnosis for this admission?: Yes (2) Obstetrical laceration, first degree Is this a current diagnosis for this admission?: Yes (3) Pre-eclampsia Is this a current diagnosis for this admission?: Yes - Additional Information Resuscitation Status: Full Code Discharge Diet: Regular Discharge Activity: Balance Activity w/Rest, Pelvic Rest Prescriptions: Ibuprofen [Motrin 800 mg Tablet] 800 mg PO Q8HP PRN #60 tablet PRN Reason: Home Medications: Vit,Calc76/Iron/Folic [Prenatabs Rx Tablet] 1 tab PO DAILY 12/07/19 Ibuprofen [Motrin 800 mg Tablet] 800 mg PO Q8HP PRN #60 tablet 02/09/20 HPI Gestational Age: 37.0 Reason(s) for Admission: Induction of Labor, PIH Procedures: NST Intrapartum Procedure(s): Spontaneous Vaginal Delivery Complication(s): Laceration-Vaginal Laceration-Degree: 2nd Hospital Course 59. Maternal Morbidity (serious complications experinced by the mother associated with labor and delivery: None of the above Results Laboratory Results: WBC 9.0 10^3/uL (4.0-10.5) 02/08/20 07:55 RBC 3.37 10^6/uL (3.72-5.28) L 02/08/20 07:55 Hgb 11.0 g/dL (12.0-15.5) L 02/08/20 07:55 Hct 30.6 % (36.0-47.0) L 02/08/20 07:55 MCV 91 fl (80-97) 02/08/20 07:55 MCH 32.8 pg (27.0-33.4) 02/08/20 07:55 MCHC 36.0 g/dL (32.0-36.0) 02/08/20 07:55 RDW 13.5 % (11.5-14.0) 02/08/20 07:55 Plt Count 222 10^3/uL (150-450) 02/08/20 07:55 Sodium 133.8 mmol/L (137-145) L 02/05/20 17:08 Potassium 4.2 mmol/L (3.6-5.0) 02/05/20 17:08 Chloride 104 mmol/L (98-107) 02/05/20 17:08 Carbon Dioxide 18 mmol/L (22-30) L 02/05/20 17:08 Anion Gap 12 (5-19) 02/05/20 17:08 BUN 6 mg/dL (7-20) L 02/05/20 17:08 Creatinine 0.45 mg/dL (0.52-1.25) L 02/05/20 17:08 Est GFR ( Amer) > 60 (>60) 02/05/20 17:08 Est GFR (MDRD) Non-Af > 60 (>60) 02/05/20 17:08 Glucose 88 mg/dL (75-110) 02/05/20 17:08 Uric Acid 3.7 mg/dL (2.5-6.2) 02/05/20 17:08 Calcium 9.5 mg/dL (8.4-10.2) 02/05/20 17:08 Total Bilirubin 0.4 mg/dL (0.2-1.3) 02/05/20 17:08 Direct Bilirubin 0.2 mg/dL (0.0-0.4) 02/05/20 17:08 Neonat Total Bilirubin Not Reportable 02/05/20 17:08 Neonat Direct Bilirubin Not Reportable 02/05/20 17:08 Neonat Indirect Bili Not Reportable 02/05/20 17:08 AST 15 U/L (14-36) 02/05/20 17:08 ALT 8 U/L (<35) 02/05/20 17:08 Alkaline Phosphatase 162 U/L (38-126) H 02/05/20 17:08 Total Protein 6.1 g/dL (6.3-8.2) L 02/05/20 17:08 Albumin 3.5 g/dL (3.5-5.0) 02/05/20 17:08 Urine Color STRAW 02/05/20 16:10 Urine Appearance CLEAR 02/05/20 16:10 Urine pH 7.0 (5.0-9.0) 02/05/20 16:10 Ur Specific [place] 1.003 02/05/20 16:10 Urine Protein NEGATIVE mg/dL (NEGATIVE) 02/05/20 16:10 Urine Glucose (UA) NEGATIVE mg/dL (NEGATIVE) 02/05/20 16:10 Urine Ketones NEGATIVE mg/dL (NEGATIVE) 02/05/20 16:10 Urine Blood SMALL (NEGATIVE) H 02/05/20 16:10 Urine Nitrite NEGATIVE (NEGATIVE) 02/05/20 16:10 Urine Bilirubin NEGATIVE (NEGATIVE) 02/05/20 16:10 Urine Urobilinogen NEGATIVE mg/dL (<2.0) 02/05/20 16:10 Ur Leukocyte Esterase NEGATIVE (NEGATIVE) 02/05/20 16:10 Urine Creatinine 22.0 mg/dL (16-327) 02/05/20 16:10 Protein/Creatinin Ratio 0.6 mg/mg (0.0-0.2) H 02/05/20 16:10 Urine Total Protein 12.8 mg/dL (<12) H 02/05/20 16:10 Urine Ascorbic Acid NEGATIVE (NEGATIVE) 02/05/20 16:10 Membranes Rupture POSITIVE (NEGATIVE) H 02/06/20 09:14 Urine Opiates Screen NEGATIVE 02/05/20 16:10 Urine Methadone Screen NEGATIVE 02/05/20 16:10 Ur Barbiturates Screen NEGATIVE 02/05/20 16:10 Ur Phencyclidine Scrn NEGATIVE 02/05/20 16:10 Ur Amphetamines Screen NEGATIVE 02/05/20 16:10 U Benzodiazepines Scrn NEGATIVE 02/05/20 16:10 Urine Cocaine Screen NEGATIVE 02/05/20 16:10 U Marijuana (THC) Screen NEGATIVE 02/05/20 16:10 RPR NONREACTIVE (NONREACTIVE) 02/05/20 19:15 Blood Type O POSITIVE 02/05/20 19:15 Antibody Screen NEGATIVE 02/05/20 19:15 Plan Plan of Treatment: f/u at [facility] 4 wks Time Spent: Less than 30 Minutes
[2020-02-09 11:24] VITALS: BP 137/91
== END 2020-02-09 14:00 | disposition home or self-care (01) | DRG 807 ==
LOC: LC 15:49 → LR 18:22 → 2S 02-07 13:40
PROVIDERS: ADMIT Obstetrics & Gynecology; ATTEND Obstetrics & Gynecology
PROC: 10E0XZZ Delivery of Products of Conception, External Approach (ICD-10-PCS; principal; 2020-02-07)
PROC: 0HQ9XZZ Repair Perineum Skin, External Approach (ICD-10-PCS; 2020-02-07)
PROC: 0UQMXZZ Repair Vulva, External Approach (ICD-10-PCS; 2020-02-07)
DX: O14.94 Unspecified pre-eclampsia, complicating childbirth (principal); Z37.0 Single live birth; O70.0 First degree perineal laceration during delivery; O71.82 Other specified trauma to perineum and vulva; Z91.013 Allergy to seafood; Z3A.37 37 weeks gestation of pregnancy; Z88.8 Allergy status to other drugs, medicaments and biological substances
CPT/HCPCS: 1967; 36415; 80053; 80307; 81005; 82570; 84112; 84156; 84550; 85027; 86592; 86850; 86900; 86901; 94760; J0360; J0690; J2270; J2300; J2405; J2550; J2590; J2795; J3010; J3490